=== PATIENT | male | born 1955 | race Hispanic/Latino ===

== ENCOUNTER 2019-05-22 09:36 | Emergency (ER) | payer SELFPAY ==
[~2019-05-22] VITALS: Ht 165.1 cm; Wt 60.4 kg
[2019-05-22] MEDS ORDERED: CLINDAMYCIN PHOS 600 MG/ 4 ML VIAL IM ONE (10:00)
[2019-05-22] MEDS ORDERED: CLINDAMYCIN PHOS 600 MG/ 4 ML VIAL ONE (10:10)
[2019-05-22 10:12] VITALS: BP 144/94
== END 2019-05-22 10:22 | disposition home or self-care (01) ==
LOC: FSED 09:36
DX: L03.114 Cellulitis of left upper limb (principal); L03.113 Cellulitis of right upper limb
CPT/HCPCS: 96372; 99282